=== PATIENT | male | born 1955 | race Two or more races ===

== ENCOUNTER → 2016-08-16 | Day surgery (SDC) | payer BC, OTHER ==
[~2016-08-16] MED LIST: IV RINGERS,LACTATED 1000ML 1,000 ML IV SCH; LOSA100T6 PO; OMEP40CA5 PO; PRAV80TA2 PO; PROPOFOL 20 ML IV ONE
--- NOTE | 2016-08-16 13:16 | PDOC1 ---
History and Physical Date of Admission Date of Admission DATE: 08/16/16 TIME: 13:09 Source Source: Patient History of Present Illness History of Present Illness 61 y/o male with anemia with low iron saturation %. Last colonoscopy 2012 with small rectal polyp and diverticulosis, though FH of CRC in mother. Treated chronically with PPI for cough presumed to be GERD; no prior EGD. Other GI history negative. Past Medical History Cardiovascular: HTN, Hyperlipidemia Pulmonary: Other (LENA) Musculoskeletal: Osteoarthritis Past Surgical History Past Surgical History: Other (vasectomy) Family History Family History: No Significant Social History Smoke: No ALCOHOL: none Current Medications Current Medications Current Medications Ringer's Solution 1,000 ml @ 50 mls/hr Q20H IV ; Start 08/16/16 at 07:00; Stop 08/16/16 at 18:59 Allergies Allergies: Coded Allergies: No Known Drug Allergies (Unverified , 08/16/16) ROS Review of System otherwise negative Physical Exam General: Alert, Oriented X3, Cooperative, No acute distress Lungs: Clear to auscultation Heart: S1S2, RRR, no gallops, no murmurs Abdomen: Normal bowel sounds, Soft, No tenderness, No hepatosplenomegaly, No masses Rectal Exam: deferred Extremities: No cyanosis, No edema Skin: No significant lesion Neuro: Normal gait, Normal speech, Strength at 5/5 X4 ext, Normal tone, Sensation intact, Cranial nerves 3-12 NL, Reflexes 2+ Psych/Mental Status: Mental status NL, Mood NL VTE Prophylaxis Ordered VTE Prophylaxis Devices: No VTE Pharmacological Prophylaxi: No Assessment/Plan Assessment/Plan IMP: 1. Early TORI 2. Cough-->GERD? 3. H/o polyp/FH /CRC Plan: EGD/colonoscopy RANDOLPH LAM MD August 16, 2016 13:16
[2016-08-16 15:14] VITALS: BP 40/81
--- NOTE | 2016-08-19 14:43 | PATHOLOGY ---
PATHOLOGY REPORT * * * * * * * * FINAL DIAGNOSIS: A. Duodenal biopsy: - Mild nonspecific duodenitis. B. Gastric biopsy, antrum: - Chronic gastritis, mild to moderate. COMMENT: Sections of the duodenal biopsy reveal segments of small intestine mucosa showing mild chronic inflammation. There are a few lymphoid aggregates present. The mucosal villi are preserved. There are no sprue-like changes. Sections of the gastric biopsy reveal segments of gastric antral mucosa showing mild to moderate chronic inflammation. An immunoperoxidase stain for Helicobacter is obtained. There are no Helicobacter organisms identified. There is no evidence of malignancy. Special Stain Performed: Immunoperoxidase stain for Helicobacter is obtained on B1. REPORT ELECTRONICALLY SIGNED BY: Manoj Tejada M.D. DATE/TIME: 08/19/2016 14:41 * * * * * * * * GROSS PATHOLOGY: A. Received in formalin labeled "You Appiah, duodenal biopsy," are four segments of narvaez soft tissue measuring 1.0 x 0.8 x 0.1 cm in aggregate dimensions and ranging from 0.2 to 0.5 cm in maximum dimension. The specimen is submitted entirely in cassette A1. B. Received in formalin labeled "You Appiah, antral biopsy," are two segments of narvaez soft tissue measuring 0.5 x 0.5 x 0.1 cm in aggregate dimensions and ranging from 0.4 to 0.5 cm in maximum dimension. The specimen is submitted entirely in cassette B1. ([facility]; 08/18/2016) INITIAL CPT CODE(S): A; 92031 B; 40182, 54539 Professional services performed by [facility] at [address] [address] Technical services performed by [facility] at [address] [place] [address] [address] [address]. SPECIMEN(S) RECEIVED: A.Duodenal biopsy B.Antral biopsy CLINICAL HISTORY: GERD, family history of colon cancer PATIENT: YOU APPIAH /AGE: 205/25/1955 (Age: 61) PATIENT #: [id number] ALT CASE #: SPECIMEN COLLECTION DATE: 08/16/2016 SPECIMEN RECEIVED DATE: 08/17/2016 [facility] - [address] [place] [address] - PHONE: [phone] * * * END OF REPORT * * *
== END | disposition home or self-care (01) ==
LOC: ENDOS 12:40
PROVIDERS: ATTEND Internal Medicine Gastroenterology
DX: D50.9 Iron deficiency anemia, unspecified (principal); N40.0 Benign prostatic hyperplasia without lower urinary tract symptoms; K57.30 Diverticulosis of large intestine without perforation or abscess without bleeding; Z80.0 Family history of malignant neoplasm of digestive organs; K21.0 Gastro-esophageal reflux disease with esophagitis; K31.819 Angiodysplasia of stomach and duodenum without bleeding; E78.00 Pure hypercholesterolemia, unspecified; I10 Essential (primary) hypertension; M17.12 Unilateral primary osteoarthritis, left knee; Z72.89 Other problems related to lifestyle; Z87.39 Personal history of other diseases of the musculoskeletal system and connective tissue
CPT/HCPCS: 43239; 45378; J2704